=== PATIENT | male | born 1950 | race American Indian/Alaskan Native ===

== ENCOUNTER 2020-04-30 20:05 | Emergency (ER) | payer MEDICARE ==
--- NOTE | 2020-04-30 20:40 | Emergency Department Report ---
ED CPR HPI - General Stated Complaint: CARDIAC ARREST Time Seen by Provider: 04/30/20 20:16 Source: family, EMS Mode of arrival: Stretcher Limitations: Other (cardiac arrest) - History of Present Illness Initial Comments: CC: cardiac arrest HPI: Hx obtained from EMS, and neighbor Mr. Cifuentes is a 69 yo male with hx of CHF who presents in cardiac arrest. Patient had mild shortness of breath this evening. He also had bilateral hand pain and swelling. heard patient fall this evening. He stated that he had difficulty breathing. Shortly thereafter he became unresponsive. He stopped moving. called 911. Upon EMS arrival, patient was pulseless without spontaneous breathing efforts. EMS inserted Mejia Airway. ACLS resuscitation included 5 doses of epinephrine and chest compressions. Total downtime 45 minutes. PEA rhythm initially then ventricular fibrillation. Patient received 2 shocks. Last hospitalized at [facility] in March. Received surgery on right hand. Category Consultant Dr. Sanchez at [facility]. Mr. Cifuentes does not have a PCP. MD Complaint: found unresponsive, stopped breathing, collapsed during rest Place: home Bystander CPR Performed: No Initial Findings in the Field: unresponsive ROSC in the Field: No Associated Injuries: No Associated Symptoms: shortness of breath Treatments Prior to Arrival: other airway device (Mejia Airway), defribrillated shocks # (2 shocks), epinephrine mgs # (5 doses) ED Review of Systems ROS: Stated complaint: CARDIAC ARREST Other details as noted in HPI Comment: Unobtainable due to pts medical conditions (cardiac arrest) ED Past Medical Hx - Past Medical History Previous Medical History?: Yes Hx Congestive Heart Failure: Yes - Surgical History Past Surgical History?: Yes Additional Surgical History: hand surgery - Social History Smoking Status: Never Smoker Other Social History: , retired ED Physical Exam - General Limitations: Other (cardiac arrest) General appearance: other (lifeless, no spontaneous movement) - Head Head exam: Present: atraumatic, normocephalic - Eye Pupils: Present: other (fixed dilated pupils) - ENT ENT exam: Present: other (pale mucosa, extraglottic device in place) - Neck Neck exam: Present: normal inspection - Respiratory Respiratory exam: Present: other (no spontaneous respirations, equal coarse breath sounds with ventilation) - Cardiovascular Cardiovascular Exam: Present: other (no palpable pulse, no ausculated pulse) - GI/Abdominal GI/Abdominal exam: Present: soft, distended - Extremities Exam Extremities exam: Present: normal inspection, other (no traumatic deformity of extremities) - Neurological Exam Neurological exam: Present: other (lifeless, no spontaneous movement) - Psychiatric Psychiatric exam: Present: other (lifeless, no spontaneous movement) - Skin Skin exam: Present: other (cool, pale) ED Medical Decision Making - Medical Decision Making Mr. Cifuentes is a 69-year-old male with history of CHF who presents in cardiac arrest. Patient is total downtime 45 minutes. Upon arrival PEA rhythm rate 20 bpm on monitor. Asystole shortly ensued thereafter. Upon arrival chest compressions were continued until patient was placed on monitor. Due to inability to achieve ROSC in spite extensive resuscitation attempt, patient was pronounced at 2000. I informed and neighbor of in person. Critical Care Time: Yes Critical care time in (mins) excluding proc time.: 40 Critical care attestation.: If time is entered above; I have spent that time in minutes in the direct care of this critically ill patient, excluding procedure time. 40 minutes of critical care time excluding procedures were used in the care of the patient. Respiratory therapist and nursing team were all notified prior to patient's arrival once EMS call was received. We are prepared to meet patient upon his arrival. . I obtained history from EMS at the bedside. We continued chest compressions. After receiving information, further resuscitation attempt deemed to be futile. I had extensive conversation and counseling with in neighbor. I was unable to attend to other patients during this patient encounter. I spoke with police sergeant precinct. I informed police sergeant precinct that I do suspect natural cause of . I reviewed electronic record. ED Disposition Clinical Impression: Cardiac arrest, History of CHF (congestive heart failure) Disposition: DC-20 Is pt being admited?: No Does the pt Need Aspirin: No Condition: Stable Time of Disposition: 20:01
== END 2020-04-30 22:23 ==
LOC: ED 20:05
DX: I46.9 Cardiac arrest, cause unspecified (principal); I50.9 Heart failure, unspecified; Z98.890 Other specified postprocedural states
CPT/HCPCS: 92950